=== PATIENT | female | born 1955 | race Caucasian/White ===

== ENCOUNTER 2016-12-08 15:10 | Emergency (ER) | payer OTHER ==
[~2016-12-08] VITALS: Ht 157.5 cm; Wt 40.8 kg
--- NOTE | 2016-12-08 15:10 | NUR ---
PATIENT BIB [facility] TO ER BED 5.
[2016-12-08 15:12] VITALS: BP 104/57
--- NOTE | 2016-12-08 15:15 | NUR ---
PATIENT BROUGHT IN BY EMS FROM [facility] PT FOUND WITH G-TUBE OUT TODAY HX----CVA WITH APHASIA,DYSPHAGIA, SEVERELY CONTRACTED, SCHIZOPHRENIA, DEPRESSION RX----LACTULOSE, TYLENOL, VITAMIN C; DENIES N/V/D; SKIN IS PINK/WARM/DRY; AAOX4 WITH EVEN AND STEADY GAIT; LUNGS CLEAR BL; HR EVEN AND REGULAR; PT DENIES ANY FEVER, CP, SOB, OR COUGH AT THIS TIME; PATIENT STATES PAIN OF 0/10 AT THIS TIME; VSS; PATIENT POSITIONED FOR COMFORT; HOB ELEVATED; BEDRAILS UP X2; BED DOWN. ER MD MADE AWARE OF PT STATUS.
--- NOTE | 2016-12-08 15:44 | NUR ---
Note robbi in ED - 12/08/16 at 1550 by CARLY Patient discharged with v/s stable. Written and verbal after care instructions given and explained. Patient verbalized understanding. Ambulatory with steady gait. All questions addressed prior to discharge. Advised to follow up with PMD.
--- NOTE | 2016-12-08 15:44 | NUR ---
DR FRIAS AT BEDSIDE
--- NOTE | 2016-12-08 15:50 | NUR ---
PATIENT BEING EVALUATED BY DR. FRIAS.
--- NOTE | 2016-12-08 16:01 | NUR ---
XRAY AT BEDSIDE
--- NOTE | 2016-12-08 17:30 | NUR ---
SPOKE TO [employer] ARCHITECT RE: [facility]SPORT OF PATIENT BACK TO [facility] AFTER GTUBE INSERTION.
--- NOTE | 2016-12-08 17:40 | NUR ---
SPOKE TO NURSE FAROOQ FROM [facility] RE: PATIENT TRANSPORT BACK AT 2100 BY [facility]. REPORT GIVEN TO NURSE FAROOQ
--- NOTE | 2016-12-08 18:00 | NUR ---
PT RESTING/SLEPPING COMFORTABLY ON BED, NO ACUTE DISTRESS NOTED AT THIS TIME, WILL CONTINUE TO MONITOR Addendum: 12/08/16 at 1801 by CARLY WILL BE TRANSPORTED VIA [facility] AT 2100
--- NOTE | 2016-12-08 19:15 | NUR ---
REPORT GIVEN TO PIN FOR CONTINUATION OF CARE
--- NOTE | 2016-12-08 19:25 | NUR ---
GOT REPORT FROM JOSIANE SANCHEZ. PT. RESTING IN BED, NO S/SX OF DISTRESS AT THIS TIME
[2016-12-08 20:32] VITALS: BP 110/52
--- NOTE | 2016-12-08 20:32 | NUR ---
Patient discharged with v/s stable. Written and verbal after care instructions given and explained. Patient verbalized understanding. Ambulance Transport with to care home. All questions addressed prior to discharge. Advised to follow up with PMD. TRANSPORT VIA [facility] BY WITH 2 ASSISTANTS.
== END 2016-12-08 20:32 ==
LOC: MED 15:10
DX: Z43.1 Encounter for attention to gastrostomy (principal); Z86.73 Personal history of transient ischemic attack (TIA), and cerebral infarction without residual deficits
CPT/HCPCS: 43760; 74241; 82948; 99284; Q0092